=== PATIENT | female | born 1990 | race African-American/Black ===

== ENCOUNTER 2017-04-10 13:54 | Emergency (ER) | payer OTHER ==
[~2017-04-10] VITALS: Ht 160 cm; Wt 68.0 kg
[2017-04-10 14:09] VITALS: BP 126/69
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
[2017-04-10] MEDS ORDERED: CYCLOBENZAPRINE 10 MG TABLET. PO ONE (14:45)
[2017-04-10] MEDS ORDERED: HYDROcodone/APAP 5/325MG 1 TAB TABLET PO ONE (14:45)
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
[2017-04-10] MEDS ORDERED: CYCL10TA2 PO (15:28)
[2017-04-10] MEDS ORDERED: ACET-704 PO (15:28)
== END 2017-04-10 15:35 | disposition home or self-care (01) ==
LOC: ER 13:54
DX: S13.4XXA Sprain of ligaments of cervical spine, initial encounter (principal); S80.02XA Contusion of left knee, initial encounter; S80.01XA Contusion of right knee, initial encounter; R51 Headache; V49.49XA Driver injured in collision with other motor vehicles in traffic accident, initial encounter; Y93.89 Activity, other specified; Y92.89 Other specified places as the place of occurrence of the external cause; Y99.8 Other external cause status; Y92.410 Unspecified street and highway as the place of occurrence of the external cause
CPT/HCPCS: 70450; 72125; 73564; 81025; 99284-25